=== PATIENT | male | born 1960 | race Two or more races ===

== ENCOUNTER 2024-07-27 08:30 | Outpatient (AMB) | payer MEDICAID, SELFPAY ==
[2024-07-27 08:39] VITALS: BP 127/82; PULSE 69; RESP 18; TEMP 36.4; O2SAT 97; BMI 23.1
--- NOTE | 2024-07-27 08:39 | ORTHONT_ITS ---
Vital signs 07/27/24 08:39 Height 1.83 m Height Method Stated Weight 77.366 kg Weight Measurement Method Standing Scale BMI 23.1 BP 127/82 Blood Pressure Source Automatic Cuff Blood Pressure Location Right Upper Arm Position Sitting Respiration 18 Pulse 69 Pulse Source Monitor Temp 97.6 F Temp Source Temporal Artery Scan Pulse Oximetry (%) 97 Oxygen Delivery Method Room Air Med/Allergies Allergies & Medications Allergies WALNUTS Adverse Reaction (Uncoded 07/27/24 08:40) HIVES Medication Reconciliation atorvastatin 20 mg tablet 20 mg PO QDAY 07/27/24 [History Confirmed 07/27/24] levetiracetam 250 mg tablet (Keppra) 250 mg PO BID 07/27/24 [History Confirmed 07/27/24] meloxicam 7.5 mg tablet 7.5 mg PO QDAY #45 tabs 07/27/24 [Rx] tamsulosin 0.4 mg capsule 0.4 mg PO QDAY 07/27/24 [History Confirmed 07/27/24] Exam Exam Breathing is nonlabored. Patient has a normal mood and affect. Bilateral extremities were evaluated and demonstrates sensation intact to light touch. Palpable pedal pulses are present. No significant edema is present. Bilateral hips were examined. The patient has no pain with log roll of the hips. Internal rotation to 30 degrees and external rotation to 30 degrees is painless. Negative FADIR. Left knee was examined today. The left knee is in reasonable alignment. Range of motion from 0-120 degrees. Knee is stable to varus and valgus as well as AP translation with <5mm. Patient has a negative McMurrays. There is no pain with patellofemoral compression and no crepitus noted. The knee is nontender to palpation. The right knee was also examined. The right knee is in varus alignment. Range of motion from 0-115 degrees. Knee is stable to varus and valgus as well as AP translation with <5mm. Patient has a negative McMurrays. There is no pain with patellofemoral compression and no crepitus noted. The knee is tender to palpation medially. Assessment and Plan Problem List (1) Arthritis of right knee: Status: Acute Plan: Patient is 60-year-old male with bilateral knee pain and right greater than left knee arthritis. He has arthritis of moderate severity. We discussed nonoperative treatments including injections, anti-inflammatories and physical therapy. We have sent him a prescription for meloxicam which is an anti- inflammatory. We will get authorization for injections at the next visit. 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 ([id number]) MA Intake Visit Data Collection New Patient or Established: New Patient (never been to [facility]) Reason for Visit:: BILATERAL KNEE PAIN Seen by Clinical Staff ONLY (RN/MA): No Verbal consent obtained for Telemed visit?: No Sueding Machine Tender Required: No PCP or OBGYN visit in last 3 months: Yes Hx Now: No Do You Feel Safe at Home: Yes Authorities Contacted: N/A Questionairres Past Medical History Past Medical History Have you ever been diagnosed with any of the following: Respiratory Problems Smoking: No Smoking Cessation Counseling: No Smoking Exposure: No Tobacco Use: No Subjective Visit Visit for: new patient and knee Immunization / Flu Flu Vaccine in the Last 12 Months: No Flu Vaccine Exclusion Criteria: No Exclusion Criteria History of Present Illness Chief complaint: BILATERAL KNEE PAIN Date of injury / onset of symptoms: SONALI Sanchez is a pleasant 63-year-old male with bilateral knee pain for years. He had an injury in high school on his right knee and is concerned about a lump on his knee cap. He He has tried ibuprofen which kind of helps. He has not tried injections or physical therapy for the knee. Pain Pain level (0-10): 5 Pain duration: ALL DAY Pain location: inside (medial), outside (lateral) and anterior Pain quality: sharp, dull and aching Pain timing: increases with activity Ambulatory data Ambulatory device: none Treatments Improvement with previous injections: No Improvement with PT: No Improvement with NSAIDS: n/a (IBUPROFEN) Review of Systems Review of Systems: All systems negative unless otherwise noted in HPI.
== END 2024-07-27 09:02 | disposition home or self-care (01) ==
LOC: HODSRG 08:30
PROVIDERS: Supervising Provider Orthopaedic Surgery Adult Reconstructive Orthopaedic Surgery; Visit Provider Orthopaedic Surgery Adult Reconstructive Orthopaedic Surgery
DX: M17.0 Bilateral primary osteoarthritis of knee (principal); M25.562 Pain in left knee; M25.561 Pain in right knee
CPT/HCPCS: 99203; G0463

== ENCOUNTER 2024-09-05 14:24 | Outpatient (AMB) | payer MEDICAID, SELFPAY ==
--- NOTE | 2024-09-05 14:50 | ORTHONT_ITS ---
Vital signs 09/05/24 14:51 Height 1.83 m Height Method Stated Weight 75.495 kg Weight Measurement Method Standing Scale BMI 22.5 BP 125/84 Blood Pressure Source Automatic Cuff Blood Pressure Location Right Upper Arm Position Sitting Respiration 16 Pulse 50 L Pulse Source Monitor Temp 98.1 F Temp Source Temporal Artery Scan Pulse Oximetry (%) 99 Oxygen Delivery Method Room Air Med/Allergies Allergies & Medications Allergies WALNUTS Adverse Reaction (Uncoded 09/05/24 14:52) HIVES Medication Reconciliation atorvastatin 20 mg tablet 20 mg PO QDAY 07/27/24 [History Confirmed 09/05/24] levetiracetam 250 mg tablet (Keppra) 250 mg PO BID 07/27/24 [History Confirmed 09/05/24] meloxicam 7.5 mg tablet 7.5 mg PO QDAY #45 tabs 07/27/24 [Rx Confirmed 09/05/24] tamsulosin 0.4 mg capsule 0.4 mg PO QDAY 07/27/24 [History Confirmed 09/05/24] Exam Exam Breathing is nonlabored. Patient has a normal mood and affect. Bilateral extremities were evaluated and demonstrates sensation intact to light touch. Palpable pedal pulses are present. No significant edema is present. Bilateral hips were examined. The patient has no pain with log roll of the hips. Internal rotation to 30 degrees and external rotation to 30 degrees is painless. Negative FADIR. Left knee was examined today. The left knee is in reasonable alignment. Range of motion from 0-120 degrees. Knee is stable to varus and valgus as well as AP translation with <5mm. Patient has a negative McMurrays. There is no pain with patellofemoral compression and no crepitus noted. The knee is nontender to palpation. The right knee was also examined. The right knee is in varus alignment. Range of motion from 0-115 degrees. Knee is stable to varus and valgus as well as AP tr anslation with <5mm. Patient has a negative McMurrays. There is no pain with patellofemoral compression and no crepitus noted. The knee is tender to palpation medially. Assessment and Plan Problem List (1) Arthritis of right knee: Status: Acute Plan: Patient is 60-year-old male with bilateral knee pain and right greater than left knee arthritis. He has arthritis of moderate severity. We discussed nonoperative treatments including injections, anti-inflammatories and physical therapy. We have sent him a prescription for meloxicam which is an anti- inflammatory. Recommend knee cortisone injection as patient would like to proceed with conservative treatment at this time. The risks and benefits of the procedure were reviewed with the patient and patient gave verbal consent to continue with the procedure. Procedure: performed by Dr. Royal Using sterile technique the Right knee was thoroughly prepped with alcohol, and approximately 1 cc of Kenalog 40 mg/mL and 4 cc of 1% lidocaine was injected without resistance into the medial tibial femoral joint space. The patient tolerated the procedure. Office Procedures GNS Level of Care Nursing/Assessment Patient Status: Established Patient Nursing Assessment/Reassesment: Medication Reconciliation, Update PMH in EMR and Vital Signs Coordination of Care: Complex Care and Chronic Disease 1-5, Consent,records obtained, informed consent, Education Simp Pt/Fam, Results/Orders obtained and Staff clarify orders Established Patient Charge Established Patient Point Assignment: 90 Established Patient Point Charge: EP Level 3 (80-115) Surgical Proc/IM SQ injection Major Surgical Procedure: Yes (KNEE INJECTION) Medication Given Medication Given Medication Given: Yes Documented Dose Given: 4 Route: Infiitration Medication Given Medication Given Medication Given: Yes Documented Dose Given: 1 Route: Infiitration Office Meds Xylocaine 10 mg/mL (1 %) injection solution Performing Provider: Capo Royal MD Performing Location: [facility] Administered by: Capo Royal MD on 09/05/24 14:59 Dose Route Admin Location Dispensed Lot Number Expiration Date [facility] Filling Hand 20 mL Infiltration 20 mL [id number] 12/05/27 89009-991-23 [facility] triamcinolone acetonide 40 mg/mL suspension for injection Performing Provider: Capo Royal MD Performing Location: [facility] Administered by: Capo Royal MD on 09/05/24 14:59 Dose Route Admin Location Dispensed Lot Number Expiration Date [facility] Filling Hand 40 mg intra-articular KNEE 1 mL [id number] 11/03/25 6663-5627-86 [facility] [place] Intake Visit Data Collection New Patient or Established: Established Patient (seen at [facility] within 3 years) Reason for Visit:: RT KNEE INJECTION Seen by Clinical Staff ONLY (RN/MA): No Street Engineer Required: No PCP or OBGYN visit in last 3 months: Yes Hx Now: No Do You Feel Safe at Home: Yes Authorities Contacted: N/A Questionairres Past Medical History Past Medical History Have you ever been diagnosed with any of the following: Respiratory Problems Smoking: No Smoking Cessation Counseling: No Smoking Exposure: No Tobacco Use: No Subjective Visit Visit for: new patient, follow up visit and knee (RIGHT KNEE ) Immunization / Flu Flu Vaccine in the Last 12 Months: No Flu Vaccine Exclusion Criteria: Refused by Patient and No Exclusion Criteria History of Present Illness Chief complaint: BILATERAL KNEE PAIN Date of injury / onset of symptoms: SONALI Sanchez is a pleasant 63-year-old male with bilateral knee pain for years. He had an injury in high school on his right knee and is concerned about a lump on his knee cap. He He has tried ibuprofen which kind of helps. He has not tried injections or physical therapy for the knee. Personal History Red flag PMH: none Pain Pain level (0-10): 5 Pain duration: ALL DAY Pain location: inside (medial), outside (lateral) and anterior Pain quality: sharp, dull and aching Pain timing: increases with activity Ambulatory data Ambulatory device: none Treatments Improvement with previous injections: No Improvement with PT: No Improvement with NSAIDS: n/a (IBUPROFEN) Review of Systems Review of Systems: All systems negative unless otherwise noted in HPI.
[2024-09-05 14:51] VITALS: BP 125/84; PULSE 50; RESP 16; TEMP 36.7; O2SAT 99; BMI 22.5
== END 2024-09-05 14:56 | disposition home or self-care (01) ==
LOC: HODSRG 14:24
PROVIDERS: PCP Family Medicine; Referring Provider Family Medicine; Supervising Provider Orthopaedic Surgery Adult Reconstructive Orthopaedic Surgery; Visit Provider Orthopaedic Surgery Adult Reconstructive Orthopaedic Surgery
DX: M17.0 Bilateral primary osteoarthritis of knee (principal); M25.562 Pain in left knee; M25.561 Pain in right knee
CPT/HCPCS: 20610; 99213; J3301; J3490; G0463

== ENCOUNTER 2025-03-08 13:56 | Outpatient (AMB) | payer MEDICAID, SELFPAY ==
--- NOTE | 2025-03-08 14:04 | PD.ORTHCLVIS ---
Vital signs 03/08/25 14:09 Height 1.83 m Height Method Stated Weight 66.905 kg Weight Measurement Method Standing Scale BMI 20.0 BP 111/71 Blood Pressure Source Automatic Cuff Blood Pressure Location Left Upper Arm Position Sitting Respiration 18 Pulse 63 Pulse Source Monitor Temp 98.5 F Temp Source Temporal Artery Scan Pulse Oximetry (%) 97 Oxygen Delivery Method Room Air Med/Allergies Allergies & Medications Allergies WALNUTS Adverse Reaction (Uncoded 03/08/25 14:10) HIVES Medication Reconciliation atorvastatin 20 mg tablet 20 mg PO QDAY 07/27/24 [History Confirmed 03/08/25] levetiracetam 250 mg tablet (Keppra) 250 mg PO BID 07/27/24 [History Confirmed 03/08/25] meloxicam 7.5 mg tablet 7.5 mg PO QDAY #45 tabs 07/27/24 [Rx Confirmed 03/08/25] tamsulosin 0.4 mg capsule 0.4 mg PO QDAY 07/27/24 [History Confirmed 03/08/25] Exam Exam Breathing is nonlabored. Patient has a normal mood and affect. Bilateral extremities were evaluated and demonstrates sensation intact to light touch. Palpable pedal pulses are present. No significant edema is present. Bilateral hips were examined. The patient has no pain with log roll of the hips. Internal rotation to 30 degrees and external rotation to 30 degrees is painless. Negative FADIR. Left knee was examined today. The left knee is in reasonable alignment. Range of motion from 0-120 degrees. Knee is stable to varus and valgus as well as AP translation with <5mm. Patient has a negative McMurrays. There is no pain with patellofemoral compression and no crepitus noted. The knee is nontender to palpation. The right knee was also examined. The right knee is in varus alignment. Range of motion from 0-115 degrees. Knee is stable to varus and valgus as well as AP translation with <5mm. Patient has a negative McMurrays. There is no pain with patellofemoral compression and no crepitus noted. The knee is tender to palpation medially. X-rays of the bilateral knees demonstrate moderate arthritis of both knees Assessment and Plan Problem List (1) Arthritis of right knee: Status: Acute Plan: Patient is 64-year-old male with bilateral knee pain and right greater than left knee arthritis. He has arthritis of moderate severity. We discussed nonoperative treatments including injections, anti-inflammatories and physical therapy. We have sent him a prescription for meloxicam which is an anti-inflammatory. Recommend knee cortisone injection as patient would like to proceed with conservative treatment at this time. The risks and benefits of the procedure were reviewed with the patient and patient gave verbal consent to continue with the procedure. Procedure: performed by Dr. Royal Using sterile technique the Right knee was thoroughly prepped with alcohol, and approximately 1 cc of Depo-Medrol 80mg/mL and 4 cc of 0.2% ropivacaine was injected without resistance into the medial tibial femoral joint space. The patient tolerated the procedure. Office Procedures GNS Level of Care Nursing/Assessment Patient Status: Established Patient Nursing Assessment/Reassesment: Medication Reconciliation, Update PMH in EMR and Vital Signs Coordination of Care: Complex Care and Chronic Disease 1-5, Education Complex Pt/Fam, Consent,records obtained, informed consent, Results/Orders obtained and Staff clarify orders Established Patient Charge Established Patient Point Assignment: 95 Established Patient Point Charge: EP Level 3 (80-115) Surgical Proc/IM SQ injection Minor Surgical Procedure: Yes (RIGHT KNEE INJECTION) Medication Given Medication Given Medication Given: Yes Documented Dose Given: 1 Route: Infiitration Medication Given Medication Given Medication Given: Yes Documented Dose Given: 4 Route: Infiitration Office Meds methylprednisolone acetate 80 mg/mL suspension for injection Performing Provider: Capo Royal MD Performing Location: [facility] Administered by: Capo Royal MD on 03/08/25 14:07 Dose Route Admin Location Dispensed Lot Number Expiration Date Package [facility] Mechanical Systems Control Engineer 80 mg intra-articular 1 mL [id number] 12/04/26 [address]-0 [id number] [employer] ropivacaine (PF) 2 mg/mL (0.2 %) injection solution Performing Provider: Capo Royal MD Performing Location: [facility] Administered by: Capo Royal MD on 03/08/25 14:07 Dose Route Admin Location Dispensed Lot Number Expiration Date Package [facility] [employer] Mechanical Systems Control Engineer 20 mL Infiltration 20 mL [id number] 07/06/27 35149-670-33 [id number] [facility] Intake Visit Data Collection New Patient or Established: Established Patient (seen at [facility] within 3 years) Reason for Visit:: RT KNEE INJECTION Seen by Clinical Staff ONLY (RN/MA): No Amusement Park Entertainer Required: No PCP or OBGYN visit in last 3 months: Yes Hx Now: No Do You Feel Safe at Home: Yes Authorities Contacted: N/A Questionairres Past Medical History Past Medical History Have you ever been diagnosed with any of the following: Respiratory Problems Smoking: No Smoking Cessation Counseling: No Smoking Exposure: No Tobacco Use: No Subjective Visit Visit for: follow up visit, knee (RIGHT KNEE ) and injections Immunization / Flu Flu Vaccine in the Last 12 Months: No Flu Vaccine Exclusion Criteria: Refused by Patient and No Exclusion Criteria History of Present Illness Chief complaint: RIGHT KNEE PAIN Date of injury / onset of symptoms: SONALI Sanchez is a pleasant 64-year-old male with bilateral knee pain for years. He had an injury in high school on his right knee and is concerned about a lump on his knee cap. He He has tried ibuprofen which kind of helps. Given injection at the last visit reports relief with it. Personal History Red flag PMH: none Pain Pain level (0-10): 5 Pain duration: ALL DAY Pain location: inside (medial), outside (lateral) and anterior Pain quality: sharp, dull and aching Pain timing: increases with activity Ambulatory data Ambulatory device: none Treatments Number of previous injections: 2 Improvement with previous injections: Yes Improvement with PT: No Improvement with NSAIDS: n/a (IBUPROFEN) Review of Systems Review of Systems: All systems negative unless otherwise noted in HPI.
[2025-03-08 14:09] VITALS: BP 111/71; PULSE 63; RESP 18; TEMP 36.9; O2SAT 97
== END 2025-03-08 14:16 | disposition home or self-care (01) ==
LOC: HODSRG 13:56
PROVIDERS: PCP Family Medicine; Referring Provider Family Medicine; Supervising Provider Orthopaedic Surgery Adult Reconstructive Orthopaedic Surgery; Visit Provider Orthopaedic Surgery Adult Reconstructive Orthopaedic Surgery
DX: M17.0 Bilateral primary osteoarthritis of knee (principal); M25.561 Pain in right knee; M25.562 Pain in left knee
CPT/HCPCS: 20610; 99213; J1010; J2795; G0463